=== PATIENT | female | born 1935 | race Caucasian/White ===

== ENCOUNTER → 2016-10-10 | Outpatient (CLI) | payer OTHER, MEDICARE ==
[2016-10-10 10:43] LABS: ALT/SGPT 14 U/L (12-78); AST/SGOT 14 U/L (15-37); BLOOD UREA NITROGEN 12 mg/dl (7-18); BUN/CREATININE RATIO 14.4 (10-20); CALCIUM 8.9 mg/dl (8.5-10.1); CARBON DIOXIDE 34 mmol/L (21-32); CHLORIDE 108 mmol/L (98-107); CHOLESTEROL 202 mg/dl (0-200); CREATININE 0.83 mg/dl (0.60-1.20); GLUCOSE 85 mg/dl (70-99); POTASSIUM 4.4 mmol/L (3.5-5.1); SODIUM 143 mmol/L (136-145)
[2016-10-10 10:47] LABS: ALKALINE PHOSPHATASE 54 U/L (45-117); CHOLESTEROL/HDL RATIO 3.7; HDL CHOLESTEROL 55 mg/dl; LDL CHOLESTEROL CALCULATED 127 mg/dl; TRIGLYCERIDES 101 mg/dl (0-150); VERY LOW DENSITY LIPOPROT CALC 20 mg/dl
== END | disposition home or self-care (01) ==
LOC: C.LABFOXMH 09:48
PROVIDERS: ATTEND Internal Medicine
DX: E78.00 Pure hypercholesterolemia, unspecified (principal)

== ENCOUNTER → 2016-10-28 | Outpatient (CLI) | payer OTHER, MEDICARE ==
--- NOTE | 2016-10-28 12:35 | MAMMOGRAPHY REPORT ---
BILATERAL DIGITAL SCREENING MAMMOGRAM WITH CAD: 10/28/2016 TECHNIQUE: Current study was also evaluated with a Computer Aided Detection (CAD) system. Bilateral CC and MLO views were obtained. COMPARISON: Comparison is made to exams dated: 10/28/2015 ultrasound, 10/28/2015 mammogram, 04/27/2015 lluvia mogram, 04/27/2015 ultrasound, 10/23/2014 ultrasound, and 10/16/2014 mammogram - [facility]. BREAST COMPOSITION: The tissue of both breasts is almost entirely fatty. FINDINGS: No suspicious masses, calcifications, or areas of architectural distortion are noted in ei ther breast. There has been no significant interval change compared to prior exams. Scattered bilate ral benign-appearing calcifications are not significantly changed. Small circumscribed benign-appear ing 6 mm mass in the left lower inner quadrant is stable dating back to at least the 2014 exam. IMPRESSION: ACR BI-RADS CATEGORY 2: BENIGN There is no mammographic evidence of malignancy. A 1 year screening mammogram is recommended. The pa tient will receive written notification of the results. Approximately 10% of breast cancers are not detected with mammography. A negative mammographic report should not delay biopsy if a clinically suggestive mass is present. Val Ochoa M.D. ah/:10/28/2016 12:19:26 [employer] Teacher: Eve GONZALEZ)(M), [facility] letter sent: Normal 1/2 BI-RADS Code: ACR BI-RADS Category 2: Benign
== END | disposition home or self-care (01) ==
LOC: C.MAMM 11:00
PROVIDERS: ATTEND Internal Medicine
DX: Z12.31 Encounter for screening mammogram for malignant neoplasm of breast (principal)